=== PATIENT | male | born 1965 | race Caucasian/White ===

== ENCOUNTER → 2018-05-03 | Outpatient (CLI) | payer OTHER ==
--- NOTE | 2018-05-03 15:20 | PCVCIMAG ---
APPROVED REPORT Study performed: 05/03/2018 14:13:43 EXAM: Comprehensive 2D, Doppler, and color-flow Echocardiogram Patient Location: Echo lab Room #: 3Status: routine BSA: 1.79 HR: 66 bpmBP: 140/80 mmHg Rhythm: NSR Other Information Study Quality: Good Risk Factors: Cardiac Risk Factors: HTN, Hyperlipidemia, Smoking Indications Dyspnea Hypertension/HDD 2D Dimensions IVSd: 6.30 (7-11mm)LVOT Diam: 17.74 (18-24mm) LVDd: 38.17 mm PWd: 8.32 (7-11mm)Ascending Ao: 30.24 (22-36mm) LVDs: 19.60 (25-40mm) Left Atrium: 28.83 (27-40mm) Aortic Root: 25.94 mm LV Single Plane 4CH: 59.10 % LV Single Plane 2CH: 66.83 % Biplane EF: 62.9 % Volumes Left Atrial Volume (Systole) Single Plane 4CH: 34.56 mLSingle Plane 2CH: 32.80 mL Biplane LA Volume: 38.00 mLLA ESV Index: 21.00 mL/m2 Aortic Valve AoV Peak Koby.: 1.29 m/s AO Peak Gr.: 6.69 mmHgLVOT Max P.27 mmHg LVOT Max V: 1.15 m/s ALCIRA Vmax: 2.19 cm2 Mitral Valve E/A Ratio: 1.7 MV Decel. Time: 212.36 ms MV E Max Koby.: 1.06 m/s MV A Koby.: 0.64 m/s MV PHT: 61.58 ms IVRT: 65.74 ms TDI E/Lateral E': 8.15E/Medial E': 9.64 Medial E' Koby.: 0.11 m/s Lateral E' Koby.: 0.13 m/s Pulmonary Valve PV Peak Koby.: 0.74 m/sPV Peak Gr.: 2.19 mmHg Pulmonary Vein P Vein S: 0.60 m/sP Vein A: 0.34 m/s P Vein D: 0.62 m/sP Vein A Dur.: 128.0 msec P Vein S/D Ratio: 0.97 Tricuspid Valve TR Peak Koby.: 2.48 m/s TR Peak Gr.: 24.57 mmHg TV Vmax: 0.77 m/sPA Pressure: 32.00 mmHg Left Ventricle The left ventricle is normal size. There is normal LV segmental wall motion. There is normal left ventricular wall thickness. Left ventricular systolic function is normal. The left ventricular ejection fraction is within the normal range. LVEF is 60-65%. The left ventricular diastolic function is normal. Right Ventricle The right ventricle is normal size. The right ventricular systolic function is normal. Atria The left atrium size is normal. The right atrium size is normal. Aortic Valve The aortic valve is normal in structure. No aortic regurgitation is present. There is no aortic valvular stenosis. Mitral Valve The anterior mitral valve leaflet has borderline prolapse. Trace mitral regurgitation. No evidence of mitral valve stenosis. Tricuspid Valve The tricuspid valve is normal in structure. Trace tricuspid regurgitation. Pulmonic Valve The pulmonary valve is normal in structure. There is no pulmonic valvular regurgitation. Great Vessels The aortic root is normal in size. The ascending aorta is normal in size. Aortic arch is normal in caliber. IVC is normal in size and collapses >50% with inspiration. Pericardium There is no pericardial effusion. There is no pleural effusion. <Conclusion> The left ventricle is normal size. There is normal left ventricular wall thickness. Left ventricular systolic function is normal. The right ventricle is normal size. The left atrium size is normal. The right atrium size is normal. The aortic valve is normal in structure. The anterior mitral valve leaflet has borderline prolapse. Trace mitral regurgitation. Trace tricuspid regurgitation.
== END | disposition home or self-care (01) ==
LOC: PCVCIMAG 14:11
PROVIDERS: ATTEND Internal Medicine Cardiovascular Disease
DX: I10 Essential (primary) hypertension (principal); E78.5 Hyperlipidemia, unspecified; F17.200 Nicotine dependence, unspecified, uncomplicated; R06.00 Dyspnea, unspecified
CPT/HCPCS: 93306

== ENCOUNTER → 2018-07-04 | Outpatient (CLI) | payer OTHER ==
--- NOTE | 2018-07-04 15:31 | PCVCIMAG ---
APPROVED REPORT Study performed: 07/04/2018 14:14:37 Exam: Stress Echocardiogram Indication: Hyperlipidemia, Hypertension Patient Location: Echo lab Stress Nurse: Evelin Herrera RN Status: routine Ht: 5 ft 10 in HR: 86 bpm BP: 160/90 mmHg Rhythm: NSR Medical History Medical History: Hyperlipidemia, HTN, Tobacco, Family hx of CAD Cardiac Risk Factors: HTN, Hyperlipidemia, Smoking, FHX of CAD Procedure The patient underwent an Exercise Stress Test using the Tomas Protocol. Blood pressure, heart rate, and EKG were monitored. An Echocardiogram was performed by biochemistry technician in four stages in quad fashion. At peak stress, four selected images were obtained and placed side by side with resting images for comparison. Stress Test Details Stress Test: Exercise stress testing was performed using a Tomas protocol. HR Resting HR: 86 bpmMax Heart Rate (APMHR): 169 bpm Max HR Achieved: 169 bpmTarget HR (85% APMHR): 143 bpm % of APMHR: 100 Recovery HR: 100 bpm HR response to stress: Normal HR response to stress BP Resting BP: 160/90 mmHg Max BP: 210/110 mmHg Recovery BP: 170/94 mmHg BP response to stress: Abnormal hypertensive response to stress. ECG Resting ECG: Sinus Rhythm Stress ECG: Sinus Rhythm ST Change: Non-ischemic Recovery ECG: Sinus Rhythm Clinical Reason for Termination: Maximal effort Exercise duration: 7 min 33 sec Highest Stage Achieved: Stage 3: 3.4 mph at 14% grade. Exercise capacity: 10.40 METs Overall Exercise Capacity for Age: Normal Pre-Stress Echo The resting Echocardiogram showed normal left ventricular contractility with an estimated Ejection Fraction of about 55-60%. Normal wall motion in all segments on baseline images. Post-Stress Echo The stress Echocardiogram showed normal left ventricular contractility with an estimated Ejection Fraction of about 60-65%. Normal augmentation of wall motion in all segments on post stress images. Clinical No clinical or ECG evidence for ischemia. Conclusion Clinical Response: Non-ischemic Exercise Capacity: Average Stress ECG Response: Non-ischemic Stress Echo Images: Non-ischemic The left ventricle is normal in size and wall thickness in both the rest and stress images. Other Information Study Quality: Adequate <Conclusion> The left ventricle is normal in size and wall thickness in both the rest and stress images.
== END | disposition home or self-care (01) ==
LOC: PCVCIMAG 13:53
PROVIDERS: ATTEND Internal Medicine Cardiovascular Disease
DX: I10 Essential (primary) hypertension (principal); E78.5 Hyperlipidemia, unspecified; F17.200 Nicotine dependence, unspecified, uncomplicated; Z82.49 Family history of ischemic heart disease and other diseases of the circulatory system
CPT/HCPCS: 93325; 93351